=== PATIENT | female | born 1980 | race Caucasian/White ===

== ENCOUNTER → 2017-08-27 | Emergency (ER) | payer OTHER ==
[~2017-08-27] VITALS: Ht 160 cm; Wt 85.3 kg
[2017-08-27 14:07] VITALS: BP 153/85
--- NOTE | 2017-08-27 14:13 | NUR ---
PT ELOPED FROM ED WITH IV INSERTED.
--- NOTE | 2017-08-27 14:27 | NUR ---
CALLED [facility] TO REPORT PT ELOPED WITH IV STILL IN. Addendum: 08/27/17 at 1430 by ALMITA [facility] INFORMED ME SHE SPOKE TO PRAVE[facility]ENSLEY AND HE SAID THEY WILL NOT SEND ANYONE TO SEARCH FOR HER.
== END | disposition left against medical advice (07) ==
LOC: ER 13:12
DX: Z53.21 Procedure and treatment not carried out due to patient leaving prior to being seen by health care provider (principal)
CPT/HCPCS: A4606; Z7610